=== PATIENT | male | born 1980 | race Caucasian/White ===

== ENCOUNTER 2017-09-13 12:29 | Emergency (ER) | payer SELFPAY ==
[~2017-09-13] VITALS: Ht 172.7 cm; Wt 90.7 kg
== END 2017-09-13 14:45 | disposition home or self-care (01) ==
LOC: ED 12:29
PROC: 0HQFXZZ Repair Right Hand Skin, External Approach (ICD-10-PCS; principal; 2017-09-13)
DX: S61.011A Laceration without foreign body of right thumb without damage to nail, initial encounter (principal); W26.8XXA Contact with other sharp object(s), not elsewhere classified, initial encounter
CPT/HCPCS: 12002; 73140; 99283